=== PATIENT | female | born 1955 | race Caucasian/White ===

== ENCOUNTER → 2016-08-26 | Day surgery (SDC) | payer OTHER ==
[~2016-08-26] VITALS: Ht 162.6 cm; Wt 108.9 kg
[~2016-08-26] MED LIST: LEXAPRO10 M1 PO; NEURONTIN300 M1 PO; NEXIUM20 M1 PO; SYNTHROID50 MCG PO
--- NOTE | 2016-08-26 12:01 | Operative Report ---
Operative/Inv Procedure Report Surgery Date: 08/26/16 Name of Procedure: urethral sling, cystoscopy Pre-Operative Diagnosis: stress incontinence Post-Operative Diagnosis: same Estimated Blood Loss: scant (200), 200cc Surgeon/Cork Grinder: ELIZABETH EATON MD Anesthesia: laryngeal mask airway Implants: vaginal mesh Drains: none Complications: none Condition: stable Operative Indication: stress incontinence Operative/Procedure Note Note: This an operative dictation on patient Francine Donnelly. She was identified in the holding area and consented for urethral sling and cystoscopy. The risks benefits and alternatives of the surgery were given including injury to anything in the bladder urethral region. All questions were answered. Patient was taken to the operating placed on the operating table in supine position. Once IV antibiotics were given and SCDs were placed, timeout was performed and the LMA anesthesia was provided afterwards. She initially was given just IV sedation but it was not adequate anesthesia. She was placed in the dorsal lithotomy position and prepped and draped in the standard sterile fashion. 16 [place] Frost catheter was placed into the bladder and the bladder was emptied. Frost was clamped and placed on the patient's abdomen. 1% lidocaine with epinephrine was infiltrated into the anterior vaginal wall suburethrally. An incision was made and the vaginal flaps were created taking care not to injure the urethra. The Altis Sling kit was then opened and the trochars provided were used to place the sling on the patient's left side followed by the right side into the obturator fascia. Sling was tensioned and seen to be in a good tension-free manner. There area was grossly irrigated with bacitracin irrigation. There was no mesh in the vaginal fornices. The incision was closed with 3-0 Vicryl locking every third suture. The Frost was removed and the bladder and the urethra was examined again with cystoscopy. There was no evidence of any injury or mesh in the bladder or the urethra. There was however small papules throughout the bladder globally consistent with an UTI. Sponge and needle count were correct at the end the case. Vaginal packing was placed with bacitracin ointment. Patient tolerated the procedure well. Findings: no mesh in bladder or urethra or vaginal fornices. She did have global small papules that was consistent with UTI.
== END ==
LOC: STS 01:33
DX: N39.3 Stress incontinence (female) (male) (principal); N32.9 Bladder disorder, unspecified; N32.81 Overactive bladder; K21.9 Gastro-esophageal reflux disease without esophagitis
CPT/HCPCS: C1771; J0744; J2250; J7060